=== PATIENT | female | born 1935 | race American Indian/Alaskan Native ===

== ENCOUNTER 2019-10-27 10:26 | Emergency (ER) | payer MEDICARE ==
[2019-10-27 11:43] VITALS: BP 175/66
--- NOTE | 2019-10-27 11:43 | Emergency Department Report ---
Blank Doc - Documentation Documentation: 83-year-old female that presents with left ankle pain and swelling. This initial assessment/diagnostic orders/clinical plan/treatment(s) is/are subject to change based on patient's health status, clinical progression and re- assessment by fellow clinical providers in the ED. Further treatment and workup at subsequent clinical providers discretion. Patient/guardians urged not to elope from the ED as their condition may be serious if not clinically assessed and managed. Initial orders include: 1- Patient sent to [facility] for further evaluation and treatment 2- xrays
--- NOTE | 2019-10-27 13:59 | Emergency Department Report ---
ED General Adult HPI - General Chief complaint: Extremity Injury, Lower Stated complaint: LFT ANKLE INJURY/PAIN Time Seen by Provider: 10/27/19 11:42 Source: patient Mode of arrival: Ambulatory Limitations: No Limitations - History of Present Illness Initial comments: Patient presents to the emergency department with a chief complaint of left ankle pain 1 week. Patient states that she was standing in a chair trying to arrange some items when she slipped off the chair twisting her left ankle. She denies completely falling or hitting her head. Patient states any movement especially when she points her foot midline causes sniffed amount of pain of the outside part of her leg. -: Sudden Location: lower extremity Radiation: non-radiation Severity scale (0 -10): 5 Quality: aching Consistency: constant Improves with: rest Worsens with: movement Associated Symptoms: denies other symptoms Treatments Prior to Arrival: none - Related Data Previous Rx's Medication Instructions Recorded Last Taken Type Azithromycin [Zithromax TAB] 500 mg PO QDAY #3 tablet 07/10/15 Unknown Rx Fluticasone [Flonase] 1 spray NS QDAY #1 bottle 07/10/15 Unknown Rx HYDROcodone/APAP 5-325 [[place] 1 each PO Q6HR PRN #20 tablet 07/10/15 Unknown Rx 5-325 mg TAB] traMADoL [Ultram] 50 mg PO Q6HR PRN #15 tablet 10/27/19 Unknown Rx Allergies Allergy/AdvReac Type Severity Reaction Status Date / Time No Known Allergies Allergy Unverified 07/10/15 13:39 ED Review of Systems ROS: Stated complaint: LFT ANKLE INJURY/PAIN Other details as noted in HPI Comment: All other systems reviewed and negative Constitutional: denies: chills, fever Eyes: denies: eye pain, eye discharge, vision change ENT: denies: ear pain, throat pain Respiratory: denies: cough, shortness of breath, wheezing Cardiovascular: denies: chest pain, palpitations Endocrine: no symptoms reported Gastrointestinal: denies: abdominal pain, nausea, diarrhea Genitourinary: denies: urgency, dysuria, discharge Musculoskeletal: other (left ankle pain). denies: back pain, joint swelling, arthralgia Skin: denies: rash, lesions Neurological: denies: headache, weakness, paresthesias Psychiatric: denies: anxiety, depression Hematological/Lymphatic: denies: easy bleeding, easy bruising ED Past Medical Hx - Past Medical History Previous Medical History?: Yes Hx Hypertension: Yes Additional medical history: GLAUCOMA LEFT EYE - Surgical History Past Surgical History?: Yes Hx Cholecystectomy: Yes Hx Appendectomy: Yes Additional Surgical History: HYSTERECTOMY, sinus surgery. HERNIA REPAIR - Social History Smoking Status: Never Smoker Substance Use Type: None - Medications Home Medications: Home Medications Medication Instructions Recorded Confirmed Last Taken Type Azithromycin [Zithromax TAB] 500 mg PO QDAY #3 tablet 07/10/15 Unknown Rx Fluticasone [Flonase] 1 spray NS QDAY #1 bottle 07/10/15 Unknown Rx HYDROcodone/APAP 5-325 [[place] 1 each PO Q6HR PRN #20 tablet 07/10/15 Unknown Rx 5-325 mg TAB] traMADoL [Ultram] 50 mg PO Q6HR PRN #15 tablet 10/27/19 Unknown Rx ED Physical Exam - General Limitations: No Limitations General appearance: alert, in no apparent distress - Head Head exam: Present: atraumatic, normocephalic - Eye Eye exam: Present: normal appearance - ENT ENT exam: Present: mucous membranes moist - Neck Neck exam: Present: normal inspection - Respiratory Respiratory exam: Present: normal lung sounds bilaterally. Absent: respiratory distress - Cardiovascular Cardiovascular Exam: Present: regular rate, normal rhythm. Absent: systolic murmur, diastolic murmur, rubs, gallop - Extremities Exam Extremities exam: Present: other (tender to palpation of the lateral aspect of the left ankle) - Back Exam Back exam: Present: normal inspection - Neurological Exam Neurological exam: Present: alert, oriented X3, CN II-XII intact. Absent: motor sensory deficit - Psychiatric Psychiatric exam: Present: normal affect, normal mood - Skin Skin exam: Present: warm, dry, intact, normal color. Absent: rash ED Course Vital Signs 10/27/19 11:42 Temperature 98.3 F Pulse Rate 64 Respiratory 20 Rate Blood Pressure 175/66 O2 Sat by Pulse 99 Oximetry ED Medical Decision Making - Radiology Data Radiology results: report reviewed - Medical Decision Making results discussed with patient Critical care attestation.: If time is entered above; I have spent that time in minutes in the direct care of this critically ill patient, excluding procedure time. ED Disposition Clinical Impression: High ankle sprain of left lower extremity Disposition: DC-01 TO HOME OR SELFCARE Is pt being admited?: No Does the pt Need Aspirin: No Condition: Stable Instructions: Ankle Sprain (ED) Additional Instructions: return if worse Referrals: [facility] [Provider Group] - 3-5 Days [facility] [Provider Group] - 3-5 Days Time of Disposition: 14:46
--- NOTE | 2019-10-27 14:13 | XRay Report ---
LEFT ANKLE 3 VIEWS INDICATION / CLINICAL INFORMATION: left ankle pain and swelling. COMPARISON: None available. FINDINGS: Calcaneal enthesophytes are seen at the attachment of the Achilles tendon and plantar tendon aponeuro sis. Mild diffuse soft tissue swelling is seen within the left ankle. There is no fracture or disloca tion. Ankle mortise appears intact. Signer Name: Michael Rosa MD Signed: 10/27/2019 2:09 PM Workstation Name: [id number]
== END 2019-10-27 16:05 | disposition home or self-care (01) ==
LOC: ED 10:26
DX: S93.402A Sprain of unspecified ligament of left ankle, initial encounter (principal); I10 Essential (primary) hypertension; Z90.49 Acquired absence of other specified parts of digestive tract; Z90.710 Acquired absence of both cervix and uterus; Z79.899 Other long term (current) drug therapy; X50.1XXA Overexertion from prolonged static or awkward postures, initial encounter; Y93.89 Activity, other specified; Y92.89 Other specified places as the place of occurrence of the external cause; Y99.8 Other external cause status

== ENCOUNTER 2021-12-15 10:52 | Emergency (ER) | payer MEDICARE ==
[2021-12-15] MEDS ORDERED: KETOROLAC 60 MG/2 ML INJ IM ONE (16:56)
--- NOTE | 2021-12-15 17:10 | Emergency Department Report ---
ED Headache HPI - General Chief Complaint: Headache Stated Complaint: HEADACHE Time Seen by Provider: 12/15/21 16:34 Source: patient, old records Exam Limitations: no limitations - History of Present Illness Initial Comments: 85-year-old female with a past medical history of hypertension and sinus surgery presents to the hospital with complaints of intermittent headache that feels like fluid moving forward and pressure when bending forward. Pain is currently rated 8/10 in intensity. She is taken Tylenol and aspirin intermittently for pain. She denies nausea, vomiting, focal weakness, neck pain, focal numbness, or ataxia. As per medical record patient had similar complaint in 2015 and had an unremarkable CAT scan head at that time with exception of ethmoid sinus disease Patient states she has not had this type of headache since 2014 Allergies/Adverse Reactions: Allergies No Known Allergies Allergy (Unverified 07/10/15 13:39) Home Medications: Ambulatory Orders Azithromycin [Zithromax TAB] 500 mg PO QDAY #3 tablet 07/10/15 Fluticasone [Flonase] 1 spray NS QDAY #1 bottle 07/10/15 HYDROcodone/APAP 5-325 [[place] 5-325 mg TAB] 1 each PO Q6HR PRN #20 tablet 07/10/15 traMADoL [Ultram] 50 mg PO Q6HR PRN #15 tablet 10/27/19 ED Review of Systems ROS: Stated complaint: HEADACHE Other details as noted in HPI Comment: All other systems reviewed and negative ED Past Medical Hx - Past Medical History Hx Hypertension: Yes Additional medical history: GLAUCOMA LEFT EYE - Surgical History Hx Cholecystectomy: Yes Hx Appendectomy: Yes Additional Surgical History: HYSTERECTOMY, sinus surgery. HERNIA REPAIR - Social History Smoking Status: Never Smoker Substance Use Type: None - Medications Home Medications: Home Medications Medication Instructions Recorded Confirmed Last Taken Type Azithromycin [Zithromax TAB] 500 mg PO QDAY #3 tablet 07/10/15 Unknown Rx Fluticasone [Flonase] 1 spray NS QDAY #1 bottle 07/10/15 Unknown Rx HYDROcodone/APAP 5-325 [[place] 1 each PO Q6HR PRN #20 tablet 07/10/15 Unknown Rx 5-325 mg TAB] traMADoL [Ultram] 50 mg PO Q6HR PRN #15 tablet 10/27/19 Unknown Rx ED Physical Exam - General Limitations: No Limitations - Other Other exam information: General: No acute distress Head: Atraumatic Eyes: normal appearance ENT: Moist mucous membranes Neck: Normal appearance, no midline tenderness, no nuchal rigidity Chest: Clear to auscultation bilaterally CV: Regular rate and rhythm Abdomen: Soft, normal bowel sounds, nontender, nondistended, no rebound or guarding Back: Normal inspection Extremity: Normal inspection, full range of motion Neuro: Alert O x 3, no facial asymmetry, speech clear, no gross motor sensory deficit, [id number] function intact Psych: Appropriate behavior Skin: No rash ED Course Vital Signs 12/15/21 12:19 Temperature 98.0 F Pulse Rate 60 Respiratory 20 Rate Blood Pressure 167/60 O2 Sat by Pulse 99 Oximetry ED Medical Decision Making - Radiology Data Radiology results: report reviewed NONENHANCED CT SCAN OF THE HEAD: INDICATION / CLINICAL INFORMATION: 85 years Female; headache x 1 month. TECHNIQUE: Routine CT head without contrast. All CT scans at this location are performed using CT dose reduction for ALARA by means of automated exposure control. COMPARISON: None. FINDINGS: BRAIN / INTRACRANIAL CONTENTS: No acute hemorrhage, mass effect, midline shift, hydrocephalus, or acute, large territorial infarct. No chronic infarct or focal atrophy. Mild cortical involution. No significant white matter abnormality. CRANIOCERVICAL JUNCTION: No significant abnormality. ORBITS: No significant abnormality of visualized orbits. SINUSES / MASTOIDS: No significant abnormality of the visualized paranasal sinuses or mastoid air cells. ADDITIONAL FINDINGS: Incidental tiny calcification in the suze IMPRESSION: No acute focal parenchymal lesion - Medical Decision Making 85-year-old female presents to the hospital with persistent headache x1 month without neurologic findings. Given patient's age and persistent symptoms CT head was performed. CT head negative for acute normality. Toradol provided for pain in the ED with relief. Patient will be discharged to follow-up with PMD and outpatient neurologist for further work-up Critical Care Time: No Critical care attestation.: If time is entered above; I have spent that time in minutes in the direct care of this critically ill patient, excluding procedure time. ED Disposition Clinical Impression: Headache Disposition: HOME / SELF CARE / HOMELESS Is pt being admited?: No Does the pt Need Aspirin: No Condition: Stable Instructions: General Headache Without Cause, [id number] Additional Instructions: Take Tylenol Motrin as needed for pain. follow-up with your doctor or doctor/clinic provided. Return if symptoms worsen as indicated by your discharge instructions. Referrals: PRIMARY CARE, [Primary Care Provider] - 3-5 Days HANS PERLA MD [Staff Physician] - 3-5 Days (Neurologist) Time of Disposition: 18:09
--- NOTE | 2021-12-15 17:56 | Cat Scan Report ---
NONENHANCED CT SCAN OF THE HEAD: INDICATION / CLINICAL INFORMATION: 85 years Female; headache x 1 month. TECHNIQUE: Routine CT head without contrast. All CT scans at this location are performed using CT dos e reduction for ALARA by means of automated exposure control. COMPARISON: None. FINDINGS: BRAIN / INTRACRANIAL CONTENTS: No acute hemorrhage, mass effect, midline shift, hydrocephalus, or acu te, large territorial infarct. No chronic infarct or focal atrophy. Mild cortical involution. No sign ificant white matter abnormality. CRANIOCERVICAL JUNCTION: No significant abnormality. ORBITS: No significant abnormality of visualized orbits. SINUSES / MASTOIDS: No significant abnormality of the visualized paranasal sinuses or mastoid air kate ls. ADDITIONAL FINDINGS: Incidental tiny calcification in the suze IMPRESSION: No acute focal parenchymal lesion Signer Name: Mel Carpenter MD Signed: 12/15/2021 5:51 PM Workstation Name: [id number]
[2021-12-15 18:43] VITALS: BP 206/72
== END 2021-12-15 18:43 | disposition home or self-care (01) ==
LOC: ED 10:52
DX: R51.9 Headache, unspecified (principal); I10 Essential (primary) hypertension; Z90.710 Acquired absence of both cervix and uterus; Z90.49 Acquired absence of other specified parts of digestive tract; Z98.890 Other specified postprocedural states
CPT/HCPCS: 70450; 96372; 99283; J1885